=== PATIENT | male | born 1960 | race Caucasian/White ===

== ENCOUNTER 2017-08-16 20:03 | Inpatient (IN) | payer OTHER ==
[~2017-08-16] VITALS: Ht 180.3 cm; Wt 95.0 kg
[2017-08-16 21:03] LABS: BASOPHIL % 0.4 % (0-2); PLATELET COUNT 309 x10^3mcL (130-400); RED CELL DISTRIBUTION WIDTH 13.8 % (11.5-14.5)
[2017-08-16 21:07] LABS: AMPHETAMINE QUAL UR NONE DETECTED (NEG <=1000)
[2017-08-16 21:08] LABS: CALCIUM 9.3 mg/dL (8.5-10.1); CARBON DIOXIDE 29.2 mmol/L (21-32); CHLORIDE SERUM 103 mmol/L (98-107); CREATININE SERUM 1.2 mg/dL (0.7-1.3); GFR1 > 60 mL/min; GLUCOSE SERUM 102 mg/dL (74-106); POTASSIUM SERUM 3.7 mmol/L (3.5-5.1); SODIUM SERUM 138 mmol/L (136-145)
[2017-08-16 21:13] LABS: ALKALINE PHOSPHATASE 54 U/L (46-116); ALT/SGPT 24 U/L (16-63); AST/SGOT 14 U/L (15-37); BILIRUBIN TOTAL 0.31 mg/dL (0.20-1.00); LIPASE 427 IU/L (73-393); TOTAL PROTEIN, SERUM 7.7 g/dL (6.4-8.2)
[2017-08-16 23:43] LABS: CHOLESTEROL/HDL RATIO 3.7; PHOSPHOROUS 3.6 mg/dL (2.5-4.9)
[2017-08-16 23:44] VITALS: BP 145/76
[2017-08-16 23:47] VITALS: Ht 180.3 cm; Wt 95.0 kg
[2017-08-16 23:48] LABS: T3 TOTAL 0.85 ng/mL
[2017-08-16 23:52] LABS: FREE T4 0.8 ng/dL (0.76-1.46); FREE THYROXINE INDEX 2.3 ug/dL (1.4-4.5); T4(THYROXINE) 6.2 ug/dL (4.7-13.3)
[2017-08-17 01:36] VITALS: BP 145/76
[2017-08-17 05:34] VITALS: BP 127/72
[2017-08-17 06:35] LABS: BASOPHIL % 0.3 % (0-2); CHLORIDE SERUM 105 mmol/L (98-107); PLATELET COUNT 278 x10^3mcL (130-400); POTASSIUM SERUM 3.9 mmol/L (3.5-5.1); RED CELL DISTRIBUTION WIDTH 13.9 % (11.5-14.5); SODIUM SERUM 140 mmol/L (136-145)
[2017-08-17 06:36] LABS: AMYLASE 73 U/L (25-115); CALCIUM 8.6 mg/dL (8.5-10.1); CARBON DIOXIDE 25.2 mmol/L (21-32); CREATININE SERUM 1.1 mg/dL (0.7-1.3); GFR1 > 60 mL/min; GLUCOSE SERUM 90 mg/dL (74-106); LIPASE 181 IU/L (73-393); MAGNESIUM 1.8 mg/dL (1.8-2.4); PHOSPHOROUS 3.6 mg/dL (2.5-4.9)
[2017-08-17 06:41] LABS: UA SPECIFIC GRAVITY 1.025 (1.005-1.035); microscopic required? YES; urine erythrocyte TRACE (NEGATIVE)
[2017-08-17 08:07] VITALS: BP 120/73
[2017-08-17 13:39] VITALS: BP 110/57
[2017-08-17 15:37] LABS: RED BLOOD CELLS 4.25 M/mm3 (4.52-5.90)
[2017-08-17 15:55] LABS: IRON 49 ug/dL (65-170); TOTAL IRON BINDING CAPACITY 433 ug/dL (250-450)
[2017-08-17 17:34] VITALS: BP 135/75
[2017-08-17 22:36] VITALS: BP 126/78
[2017-08-18 05:07] VITALS: BP 128/84
[2017-08-18 06:08] LABS: BASOPHIL % 0.3 % (0-2); PLATELET COUNT 217 x10^3mcL (130-400); RED CELL DISTRIBUTION WIDTH 14.4 % (11.5-14.5)
[2017-08-18 06:34] LABS: CALCIUM 8.6 mg/dL (8.5-10.1); CARBON DIOXIDE 26.5 mmol/L (21-32); CHLORIDE SERUM 108 mmol/L (98-107); GFR1 > 60 mL/min; GLUCOSE SERUM 90 mg/dL (74-106); MAGNESIUM 1.8 mg/dL (1.8-2.4); PHOSPHOROUS 4.1 mg/dL (2.5-4.9); POTASSIUM SERUM 3.7 mmol/L (3.5-5.1); SODIUM SERUM 142 mmol/L (136-145)
[2017-08-18 09:12] VITALS: BP 130/82
[2017-08-18 13:16] VITALS: BP 122/78
[2017-08-18 16:59] VITALS: BP 110/68
[2017-08-18 21:03] VITALS: BP 104/65
[2017-08-19 06:25] LABS: BASOPHIL % 0.1 % (0-2); PLATELET COUNT 181 x10^3mcL (130-400); RED CELL DISTRIBUTION WIDTH 14.3 % (11.5-14.5)
[2017-08-19 06:30] LABS: CALCIUM 8.6 mg/dL (8.5-10.1); CARBON DIOXIDE 27.7 mmol/L (21-32); CHLORIDE SERUM 106 mmol/L (98-107); CREATININE SERUM 1.1 mg/dL (0.7-1.3); GFR1 > 60 mL/min; GLUCOSE SERUM 107 mg/dL (74-106); MAGNESIUM 1.7 mg/dL (1.8-2.4); PHOSPHOROUS 3.1 mg/dL (2.5-4.9); POTASSIUM SERUM 4.2 mmol/L (3.5-5.1); SODIUM SERUM 140 mmol/L (136-145)
[2017-08-19 06:34] VITALS: BP 117/69
[2017-08-19 09:59] VITALS: BP 126/80
[2017-08-19 12:32] VITALS: BP 131/82
[2017-08-19 15:06] VITALS: BP 137/76
[2017-08-19 17:34] VITALS: BP 96/62
[2017-08-19 21:54] VITALS: BP 136/74
[2017-08-20 05:57] VITALS: BP 126/63
[2017-08-20 05:58] LABS: BASOPHIL % 0.1 % (0-2); PLATELET COUNT 189 x10^3mcL (130-400); RED CELL DISTRIBUTION WIDTH 14.2 % (11.5-14.5)
[2017-08-20 06:11] LABS: CALCIUM 8.7 mg/dL (8.5-10.1); CARBON DIOXIDE 27.1 mmol/L (21-32); CHLORIDE SERUM 106 mmol/L (98-107); CREATININE SERUM 0.9 mg/dL (0.7-1.3); GFR1 > 60 mL/min; GLUCOSE SERUM 110 mg/dL (74-106); MAGNESIUM 1.8 mg/dL (1.8-2.4); PHOSPHOROUS 3.3 mg/dL (2.5-4.9); POTASSIUM SERUM 4.2 mmol/L (3.5-5.1); SODIUM SERUM 140 mmol/L (136-145)
[2017-08-20 09:00] VITALS: BP 127/70
[2017-08-20 14:04] VITALS: BP 129/65
[2017-08-20 17:55] VITALS: BP 133/80
[2017-08-20 20:49] VITALS: BP 134/80
[2017-08-21 05:19] VITALS: BP 121/65
[2017-08-21 09:26] VITALS: BP 130/79
[2017-08-21 12:37] VITALS: BP 150/96
[2017-08-21] MEDS ORDERED: FER300 PO (12:51)
[2017-08-21] MEDS ORDERED: LIPI10 PO (12:52)
[2017-08-21] MEDS ORDERED: NOR10T PO (12:52)
[2017-08-21] MEDS ORDERED: COL100 PO (12:53)
[2017-08-21] MEDS ORDERED: THERA TABS1 TAB PO (12:53)
[2017-08-21] MEDS ORDERED: MOT800 PO (13:01)
[2017-08-21] MEDS ORDERED: GAS RELIEF 8080 MG PO (13:05)
== END 2017-08-21 14:09 | disposition home or self-care (01) | DRG 417 ==
LOC: ED 20:03 → DU 23:04 → MU 08-19 14:47
PROVIDERS: Emergency Medicine; Surgery; ADMIT Family Medicine Sports Medicine
PROC: 0FT44ZZ Resection of Gallbladder, Percutaneous Endoscopic Approach (ICD-10-PCS; principal; 2017-08-19 14:00)
DX: K80.10 Calculus of gallbladder with chronic cholecystitis without obstruction (principal); K85.10 Biliary acute pancreatitis without necrosis or infection; K22.3 Perforation of esophagus; J44.9 Chronic obstructive pulmonary disease, unspecified; E78.5 Hyperlipidemia, unspecified; D64.9 Anemia, unspecified; E66.3 Overweight; Z68.29 Body mass index [BMI] 29.0-29.9, adult; F17.210 Nicotine dependence, cigarettes, uncomplicated; R73.03 Prediabetes; N40.0 Benign prostatic hyperplasia without lower urinary tract symptoms; E27.8 Other specified disorders of adrenal gland
CPT/HCPCS: 78226; 82962; 83880; 84439; A9537; J1170; J1644; J1885; J2060; J2270; J2405; J2543; J3010; J3490; J7030; J7620; J7633; Q0092